=== PATIENT | male | born 1990 ===

== ENCOUNTER → 2024-09-19 | Outpatient (REF) | payer OTHER ==
[2024-09-19 09:56] LABS: SEMEN APPEARANCE OPAQUE (OPAQUE); SEMEN VISCOSITY LIQUID (LIQUID)
[2024-09-19 09:57] LABS: SPERM CONCENTRATION 162.8 M/ml (>=15.0); WBC CONCENTRATION <=1 M/ml (<=1 M/ml)
== END ==
LOC: M LAB REF 09:39
PROVIDERS: ATTEND Internal Medicine
DX: Z31.41 Encounter for fertility testing (principal)